=== PATIENT | female | born 1975 | race American Indian/Alaskan Native ===

== ENCOUNTER 2022-08-01 10:21 | Inpatient (IN) ==
[2022-08-01] MEDS ORDERED: IOPAMIDOL 100 ML BOTTLE IV ONE (10:22)
[2022-08-01] MEDS ORDERED: PANTOPRAZOLE 40 MG VIAL IV ONE (11:36)
[2022-08-01] MEDS ORDERED: fentaNYL 100 MCG/2 ML VIAL IV ONE ×3 (11:37→15:29)
--- NOTE | 2022-08-01 11:40 | Emergency Department Note ---
Abdominal Pain HPI General Chief Complaint: Abdominal Pain Stated Complaint: abdominal pain Time Seen by Provider: 08/01/22 10:37 Source: patient Mode of arrival: ambulatory Limitations: no limitations History of Present Illness HPI Narrative: Narrative: This 47-year-old female presents complaining of abdominal pain x2 days. She states she vomits after she smells food only sweats 1-2 times a day and denies any hematemesis she also complains of diarrhea 1 time a day and denies any hematochezia. She states she is positive for COVID and has developed this subxiphoid and left upper quadrant pain since then. She states it is a steady pain occasionally gets worse with compression hitting bumps in the car it in creases with eating anything. Her past medical history she is status post cholecystectomy appendectomy TARYN and right sided oophor ectomy. She has not had a bowel movement in a day and a half and it was diarrhea she peed this morning is not particularly concentrated and she has been trying to hydrate herself with TheraFlu and tea and water. In addition she had an episode of pancreatitis in the past. Her last episode of this was over a year ago. Related Data Home Medications Medication Instructions Recorded Confirmed ondansetron 8 mg disintegrating 8 mg PO Q8HP PRN Nausea 03/11/15 08/25/20 tablet (Zofran ODT) propranolol 60 mg tablet 120 mg PO DAILY 03/11/15 07/30/21 topiramate 200 mg capsule,extended 500 mg PO DAILY 03/20/15 07/30/21 release 24 hr (Trokendi XR) duloxetine 30 mg capsule,delayed 60 mg PO DAILY 05/20/15 08/25/20 release (Cymbalta) zolmitriptan 5 mg tablet (Zomig) 5 mg PO PRN PRN Headache 11/08/15 08/25/20 Vitamin B12 1,000 mg PO DAILY 03/28/18 08/25/20 acetaminophen 500 mg tablet 500 - 1,000 mg PO DAILY PRN Pain 08/25/20 08/25/20 (Tylenol Extra Strength) docusate sodium 100 mg capsule 100 mg PO DAILY 08/25/20 08/25/20 omeprazole 20 mg capsule,delayed 20 mg PO BID 08/25/20 08/25/20 release Previous Rx's Medication Instructions Recorded dicyclomine 20 mg tablet 20 mg PO QID #12 tabs 11/28/20 Allergies Allergy/AdvReac Type Severity Reaction Status Date / Time NSAIDS (Non-Steroidal AdvReac Intermediate Verified 01/19/22 16:51 Anti-Inflamma Review of Systems ROS ROS Narrative: Narrative: All systems ED: reviewed and negative except as stated. [facility] Narrative Patient History Narrative: Narrative: Medical/Surgical/Family History All Active Problems Migraine (Acute) Headache (Acute) Migraine (Acute) Migraine (Acute) Migraine headache (Acute) Tension headache (Acute) UTI (urinary tract infection) (Acute) Chronic abdominal pain (Acute) Migraine (Acute) Abdominal pain (Acute) Migraine (Acute) Migraine aura, persistent (Acute) Head ache (Acute) Migraine (Acute) Migraine NEC/intractable (Acute) URI (upper respiratory infection) (Acute) Abdominal pain (Acute) Elevated lipase (Acute) Pancreatitis (Acute) Nausea & vomiting (Acute) Abdominal pain (Acute) Acute dehydration (Acute) Chronic headaches (Acute) Chronic headache (Acute) Medical History Abdominal pain Chronic abdominal pain Head ache Headache Migraine Migraine Migraine Migraine Migraine Migraine Migraine aura, persistent Migraine headache Tension headache UTI (urinary tract infection) Social History Alcohol Intake Frequency: holiday/special occasion only Substance Use: does not use Exam Narrative Narrative: Narrative: General: No acute distress alert and oriented x3 answers questions cogently. Skin: Well perfused and hydrated without exanthem. Lungs: Clear to auscultation equal bilaterally.: CV: Regular rate and rhythm without murmurs clicks rubs or gallops. Abdomen decreased bowel sounds tender in the subxiphoid and left upper quadrant as well as left lower quadrant without rebound CVA or psoas tenderness. She has no rigidity distention or masses or hepatosplenomegaly. Rectal: Deferred General Limitations: no limitations Course Vital Signs Vital signs: Vital Signs Temperature 96.5 F L 08/01/22 10:23 Pulse Rate 55 L 08/01/22 10:23 Respiratory Rate 18 08/01/22 10:23 Blood Pressure 108/76 08/01/22 10:23 Pulse Oximetry (%) 99 08/01/22 10:23 Oxygen Delivery Method 08/01/22 10:23 Temperature 96.5 F L 08/01/22 10:23 Pulse Rate 54 L 08/01/22 12:43 Respiratory Rate 18 08/01/22 10:23 Blood Pressure 94/69 08/01/22 12:43 Pulse Oximetry (%) 99 08/01/22 12:43 Oxygen Delivery Method 08/01/22 10:23 MDM MDM Narrative Medical decision making narrative: Narrative:The lung bases are clear. No effusions. The visualized heart is grossly normal. Abdominal images show mild fatty change within the liver, but no focal hepatic lesion. The gallbladder is surgically absent. There is marked dilatation of the common hepatic and common bile duct. The common bile duct has increased from 15 mm to 17.5 mm since the 2012 exam. There is no mass or stone in the ampullary region. Findings are most compatible with progressive post cholecystectomy papillary stenosis. Pancreas is normal in size and attenuation without focal lesion. Both kidneys, adrenal glands, spleen and aorta including aortic branches are normal in size configuration and attenuation without focal lesion. There is no free air, free fluid or adenopathy. Pelvic images show urinary bladder is normal. Partial hysterectomy changes appreciated. The retained cervix is moderately enlarged spanning 3.3 x 6.2 cm, with inhomogeneous attenuation and scattered low-attenuation foci.. 3 cm cystic lesion on the left ovary has been stable in size since 2012. Few sigmoid diverticula appreciated, but no evidence of diverticulitis. The remainder of the large bowel, small bowel and stomach are normal. Appendix is surgically absent. Bone windows show no osseous abnormality. IMPRESSION: Marked dilatation of the common bile duct which shows slow increase since 2012. Findings compatible with progressive post cholecystomy papillary stenosis. Partial hysterectomy: The retained cervix is moderately enlarged and inhomogeneous with scattered low-attenuation foci. This represents a change from the previous exam. Please correlate with speculum exam and Pap smear with possible cervical biopsy to evaluate for malignancy. 3 cm cystic lesion left ovary stable since 2012. Discussed the case with Dr. Boateng he felt the papillotomy would help the patient. Patient agreed to the procedure and consult to the hospitalist was requested. Sepsis Sepsis Identified: No Lab Data Result diagrams: 08/01/22 12:05 08/01/22 12:05 Labs: Lab Results 08/01/22 Range/Units 12:09 POC Troponin I < 0.02 (0.00-0.08) Discharge Plan Patient/Caregiver Discharge Instructions Follow up with: Leena Salazar ARNP [Primary Care Provider] - Prescriptions: No Action propranolol 60 MG tablet 120 mg PO DAILY ondansetron [Zofran ODT] 8 MG tablet,disintegrating 8 mg PO Q8HP PRN (Reason: Nausea) Trokendi XR 200 MG capsule,extended release 24hr 500 mg PO DAILY duloxetine [Cymbalta] 30 MG capsule,delayed release(DR/EC) 60 mg PO DAILY zolmitriptan [Zomig] 5 MG tablet 5 mg PO PRN PRN (Reason: Headache) Vitamin B12 1,000 mg PO DAILY acetaminophen [Tylenol Extra Strength] 500 mg Tablet 500 - 1,000 mg PO DAILY PRN (Reason: Pain) docusate sodium 100 mg Capsule 100 mg PO DAILY omeprazole 20 mg Capsule,Delayed Release(Dr/Ec) 20 mg PO BID dicyclomine 20 mg tablet 20 mg PO QID Qty: 12 0RF
--- NOTE | 2022-08-01 11:59 | Cat Scan Report ---
CLINICAL INFORMATION: Abdominal pain COMPARISON: Abdomen and pelvic CT 08/13/2012 TECHNIQUE: Following enteric contrast, 80 cc of Isovue-370 were injected intravenously, and 60 seconds later, 0.625 mm helical slices were obtained from the mid heart through the subtrochanteric regions. Following reconstruction, 2.5 mm sagittal, coronal and axial reformatted images were processed and reviewed at bone, lung and soft tissue windows. Five minutes later, 0.625 mm helical slices were obtained from the mid heart through the kidneys and viewed at soft tissue windows.The exam was performed using radiation dose optimization techniques including, but not limited to, automated exposure control, adjustment of the mA and/or kV according to patient size and use of iterative reconstruction technique. FINDINGS: The lung bases are clear. No effusions. The visualized heart is grossly normal. Abdominal images show mild fatty change within the liver, but no focal hepatic lesion. The gallbladder is surgically absent. There is marked dilatation of the common hepatic and common bile duct. The common bile duct has increased from 15 mm to 17.5 mm since the 2011 exam. There is no mass or stone in the ampullary region. Findings are most compatible with progressive post cholecystectomy papillary stenosis. Pancreas is normal in size and attenuation without focal lesion. Both kidneys, adrenal glands, spleen and aorta including aortic branches are normal in size configuration and attenuation without focal lesion. There is no free air, free fluid or adenopathy. Pelvic images show urinary bladder is normal. Partial hysterectomy changes appreciated. The retained cervix is moderately enlarged spanning 3.3 x 6.2 cm, with inhomogeneous attenuation and scattered low-attenuation foci.. 3 cm cystic lesion on the left ovary has been stable in size since 2012. Few sigmoid diverticula appreciated, but no evidence of diverticulitis. The remainder of the large bowel, small bowel and stomach are normal. Appendix is surgically absent. Bone windows show no osseous abnormality. IMPRESSION: Marked dilatation of the common bile duct which shows slow increase since 2012. Findings compatible with progressive post cholecystomy papillary stenosis. Partial hysterectomy: The retained cervix is moderately enlarged and inhomogeneous with scattered low-attenuation foci. This represents a change from the previous exam. Please correlate with speculum exam and Pap smear with possible cervical biopsy to evaluate for malignancy. 3 cm cystic lesion left ovary stable since 2012. Interpreted and Authenticated by: Haris Radford 08/01/22
[2022-08-01 13:08] LABS: Basophils # (Auto) 0.06 K/mcL (0.00-0.30); Basophils % (Auto) 0.9 % (0.0-2.0); Eosinophils # (Auto) 0.12 K/mcL (0.00-0.70); Eosinophils % (Auto) 1.7 % (0.0-7.0); Hemoglobin 13.5 g/dL (11.2-15.7); Lymphocytes # (Auto) 1.85 K/mcL (1.50-4.80); Lymphocytes % (Auto) 26.7 % (15.5-49.0); Mean Cell Volume 88.6 fL (80.0-100.0); Mean Corpuscular HGB Conc 32.9 g/dL (31.0-36.0); Monocytes # (Auto) 0.38 K/mcL (0.10-0.90); Monocytes % (Auto) 5.5 % (1.0-12.0); Neutrophils % (Auto) 64.8 % (38.0-78.0); Platelet Count 238 K/mcL (140-440); RBC 4.63 M/mcL (3.59-5.38); Red Cell Distribution Width 13.7 % (11.5-14.5); WBC 6.9 K/mcL (4.5-11.0)
[2022-08-01 13:28] LABS: ALT/SGPT 16 U/L (<40); AST/SGOT 15 U/L (<32); Albumin 4.1 gm/dL (3.2-5.2); Albumin/Globulin Ratio 1.4 (1.0-2.3); Alkaline Phosphatase 65 U/L (39-117); Amylase 26 U/L (28-100); Bilirubin,Total 0.4 mg/dL (0.1-1.0); Blood Urea Nitrogen 11 mg/dL (6-20); Calcium 8.3 mg/dL (8.6-10.4); Carbon Dioxide 17 mmol/L (22-30); Chloride 104 mmol/L (96-108); Glomerular Filtration Rate 88; Glucose 86 mg/dL (70-105)
[2022-08-01] MEDS ORDERED: 0.9 % SODIUM CHLORIDE 1,000 ML IV ONE (13:45)
[2022-08-01] MEDS ORDERED: INDOMETHACIN 25 MG CAPSULE PO ONE (14:30)
[2022-08-01] MEDS ORDERED: LACTATED RINGERS 1,000 ML IV SCH (14:30)
--- NOTE | 2022-08-01 14:39 | Internal Medicine Consult Note ---
HPI Date of Consult Consult Date: 08/01/22 Primary Care Provider: KAMILAH Wiley Consult Narrative Chief complaint: abdominal pain Reason for consult: dilated common bile duct History of present illness: Odette is a 47 year old female with migraines who is s/p lap cholecystectomy in 2001. 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 She has required several ERCPs about 15 years ago, presumably for papillary stenosis. She was last seen in our clinic in 2019 where her symptoms were suspected to be functional. She was started on nortriptyline and then seen at [facility] for [facility] in 2020 and tells me that was "normal". I do not have that report to review. On 07/21, she developed COVID and had postprandial upper abdominal pain, nausea, vomiting and diarrhea. For the last several days, her pain has been constant even despite fasting. She continues to have chronic pain and persistent migraine despite Aimovig, topiramate 400mg BID and nortriptyline and Botox. She uses Yoga and meditation. She discontinued opioid therapy. CT shows she is s/p cholecystectomy with a CBD measuring 17.5mm and normal AST, Alt, ALP, lipase and amylase. cc:: CC: Review of Systems All systems: reviewed and no additional remarkable complaints except as stated PFSH PFSH All Active Problems (Updated 08/01/22 @ 14:37 by KAMILAH Garrido) Stenosis of papilla of Vater (Acute) Migraine (Acute) Headache (Acute) Migraine (Acute) Migraine (Acute) Migraine headache (Acute) Tension headache (Acute) UTI (urinary tract infection) (Acute) Chronic abdominal pain (Acute) Migraine (Acute) Abdominal pain (Acute) Migraine (Acute) Migraine aura, persistent (Acute) Head ache (Acute) Migraine (Acute) Migraine NEC/intractable (Acute) URI (upper respiratory infection) (Acute) Abdominal pain (Acute) Elevated lipase (Acute) Pancreatitis (Acute) Nausea & vomiting (Acute) Abdominal pain (Acute) Acute dehydration (Acute) Chronic headaches (Acute) Chronic headache (Acute) Abdominal pain (Acute) Medical History (Updated 08/01/22 @ 14:37 by KAMILAH Garrido) Abdominal pain Chronic abdominal pain Head ache Headache Migraine Migraine Migraine Migraine Migraine Migraine Migraine aura, persistent Migraine headache Stenosis of papilla of Vater Tension headache UTI (urinary tract infection) Social History alcohol intake frequency: holiday/special occasion only substance use type: does not use MEDS/ALLERGIES Home Medications and Allergies Home Medications Medication Instructions Recorded Confirmed Type ondansetron 8 mg disintegrating 8 mg PO Q8HP PRN Nausea 03/11/15 08/25/20 History tablet (Zofran ODT) propranolol 60 mg tablet 120 mg PO DAILY 03/11/15 07/30/21 History topiramate 200 mg capsule,extended 500 mg PO DAILY 03/20/15 07/30/21 History release 24 hr (Trokendi XR) duloxetine 30 mg capsule,delayed 60 mg PO DAILY 05/20/15 08/25/20 History release (Cymbalta) zolmitriptan 5 mg tablet (Zomig) 5 mg PO PRN PRN Headache 11/08/15 08/25/20 History Vitamin B12 1,000 mg PO DAILY 03/28/18 08/25/20 History acetaminophen 500 mg tablet 500 - 1,000 mg PO DAILY PRN Pain 08/25/20 08/25/20 History (Tylenol Extra Strength) docusate sodium 100 mg capsule 100 mg PO DAILY 08/25/20 08/25/20 History omeprazole 20 mg capsule,delayed 20 mg PO BID 08/25/20 08/25/20 History release dicyclomine 20 mg tablet 20 mg PO QID #12 tabs 11/28/20 Rx Allergies Allergy/AdvReac Type Severity Reaction Status Date / Time NSAIDS (Non-Steroidal AdvReac Intermediate Verified 01/19/22 16:51 Anti-Inflamma EXAM Constitutional Vitals: Temp Pulse Resp BP Pulse Ox O2 Del Method 96.5 F L 57 L 18 109/74 100 08/01/22 10:23 08/01/22 13:44 08/01/22 10:23 08/01/22 13:44 08/01/22 13:44 08/01/22 14:02 General appearance: average body habitus, cooperative and no acute distress Head Head exam: Present atraumatic, normal inspection and normocephalic Eye Eye exam: Present normal appearance ENT ENT exam: Present normal exam Neck Neck exam: Present normal inspection Respiratory Respiratory exam: Present normal respiratory exam Cardiovascular Cardiovascular exam: Present normal rate and rhythm; Absent gallop, rubs or systolic murmur GI/Abdominal GI/Abdominal exam: Present normal bowel sounds, soft and tenderness (upper abdominal ); Absent organomegaly Neurological Exam Neurological exam: Present alert and oriented X3 Psychiatric Psychiatric exam: Present normal affect and normal mood Skin Skin exam: Present normal color and warm DATA Data Completed and Pending Labs: Labs from last 24 hours 08/01/22 08/01/22 08/01/22 12:09 12:05 12:05 WBC 6.9 RBC 4.63 Hgb 13.5 Hct 41.0 MCV 88.6 MCH 29.2 MCHC 32.9 RDW 13.7 Plt Count 238 MPV 12.0 Immature Gran % (Auto) 0.4 Neut % (Auto) 64.8 Lymph % (Auto) 26.7 [place] % (Auto) 5.5 Eos % (Auto) 1.7 Baso % (Auto) 0.9 Lymph # (Auto) 1.85 [place] # (Auto) 0.38 Eos # (Auto) 0.12 Baso # (Auto) 0.06 Immature Gran # 0.03 Absolute Neutrophils 4.50 VBG Lactic Acid 0.7 Sodium 133 Potassium 4.0 Chloride 104 Carbon Dioxide 17 L Anion Gap 12.0 BUN 11 Creatinine 0.8 GFR Calculation 88 Glucose 86 Calcium 8.3 L Total Bilirubin 0.4 AST 15 ALT 16 Alkaline Phosphatase 65 Total Protein 7.1 Albumin 4.1 Globulin 3.0 Albumin/Globulin Ratio 1.4 Amylase 26 L Lipase 19 POC Troponin I < 0.02 A/P Assessment and plan (1) Stenosis of papilla of Vater: Assessment and plan: I discussed her case with Dr. Casillas. We will proceed with ERCP. We discussed the procedure in detail using an illustration. We reviewed the risks of ascending cholangitis, pancreatitis, bleeding, perforation, among others. If a biliary stent is placed, she will require a repeat procedure to remove it. She will follow up with me in clinic as an out patient next week. [phone] [place] [address]. We will give her ketamine as part of her sedation regimen as this can be helpful for chronic pain in migraineurs; she understands this is not FDA approved. Status: Acute Time Spent With Patient Time: Total time spent is greater than 50% in coordination of care (as documented) at patient's floor/unit and/or counseling patient:
[2022-08-01] MEDS: LACTATED RINGERS 1,000 ML IV SCH ×2 (14:55→23:34)
[2022-08-01] MEDS ORDERED: NITROGLYCERIN 0.6 MG/HR PATCH TD ONE (15:30)
[2022-08-01] MEDS ORDERED: KETAMINE 100 MG/ML ML ONE (16:20)
[2022-08-01] MEDS: MIDAZOLAM 2 MG/2 ML VIAL IV ONE ×2 (16:25→17:43)
[2022-08-01] MEDS: PROPOFOL 200 MG/20 ML VIAL IV ONE ×2 (16:25→17:43)
[2022-08-01] MEDS ORDERED: GENTAMICIN SULFATE 80 MG/2 ML VIAL IJ ONE (16:30)
[2022-08-01] MEDS ORDERED: IOPAMIDOL 50 ML BOTTLE IJ ONE (18:17)
[2022-08-01] MEDS ORDERED: HYDROmorphone 0.5 MG/0.5 ML SYRINGE IV ONE (18:39)
[2022-08-01] MEDS ORDERED: HYDROmorphone 0.5 MG/0.5 ML SYRINGE ONE ×2 (18:42→21:27)
[2022-08-01] MEDS ORDERED: ACETAMINOPHEN 325 MG TABLET PO ONE ×2 (19:50→19:52)
[2022-08-01] MEDS: HYDROmorphone 0.5 MG/0.5 ML SYRINGE IV PRN ×2 (21:34→23:30)
[2022-08-02] MEDS: HYDROmorphone 0.5 MG/0.5 ML SYRINGE IV PRN ×10 (02:54→23:47)
[2022-08-02] MEDS: LACTATED RINGERS 1,000 ML IV SCH ×3 (05:02→21:46)
--- NOTE | 2022-08-02 05:20 | Cat Scan Report ---
CLINICAL INFORMATION: Status post ERCP. increasing abdominal pain COMPARISON: Abdomen and pelvic CT 08/13/2012 and 08/01/2022. TECHNIQUE: 0.625 mm helical slices were obtained from the mid heart through the subtrochanteric regions. Following reconstruction, 2.5 mm sagittal, coronal and axial reformatted images were processed and reviewed at bone and soft tissue windows.The exam was performed using radiation dose optimization techniques including, but not limited to, automated exposure control, adjustment of the mA and/or kV according to patient size and use of iterative reconstruction technique. FINDINGS: The lung bases are clear. No effusions. The visualized heart is grossly normal. Abdominal images show the gallbladder is surgically absent. A biliary stent is now properly positioned with the proximal end in the common hepatic duct and distal end in the descending duodenum. The duct has been decompressed considerably since the preprocedure exam. The calvarium is now approximately 10 mm in the common hepatic region. Modest air in the common hepatic and nondependent left hepatic ducts as expected. No stones identified. Both noncontrasted kidneys, adrenal glands, spleen, pancreas and aorta are normal in size, configuration and attenuation without focal lesion. There is no free air, free fluid or adenopathy. Pelvic images show normal noncontrasted urinary bladder. Partial hysterectomy changes noted moderate enlargement of the retained cervix as described CT report earlier today please refer to that report. The retained left ovary is mildly enlarged 5.1 x 2.4 cm this is been stable since 2011. Right ovary not identified and may be surgically absent. The stomach, small bowel, and large bowel are grossly normal. Appendix is surgically absent. Bone windows show no osseous abnormality. IMPRESSION: 1. No complication following ERCP. Biliary stent is properly positioned and the duct is decompressed 2. Hysterectomy changes with bulbous enlargement of the cervix. Please see CT report from earlier in the day. Please correlate with speculum exam and Pap smear to evaluate for malignancy or inflammation. Interpreted and Authenticated by: Harsi Radford 08/02/22
--- NOTE | 2022-08-02 14:41 | Internal Med History&Physical ---
HPI History of Present Illness Patient information: Note initiated : 08/02/22 at 2:32 pm Service Date, if different from initiated Date: [] Patient: Odette López a 47 y/o F admitted on for abdominal pain. Chief Complaint: [] History of present illness: Ms. López is a 47 year old F Complaining of abdominal pain. Patient developed COVID last week and has had abdominal pain in the upper abdomen since then. She presented to the ED yesterday with increasing pain for the past prior days. She has had nausea and vomiting. She has had a cholecystectomy. CT abdomen pelvis showed marked Neel dilated common bile duct that has been increasing since 2012. Findings were compatible with progressive post cholecystostomy papillary stenosis. Also noted was partial as directed me with moderately enlarged inhomogenous cervix recommend follow-up to rule out malignancy. Have patient follow-up outpatient. Dr. Boateng was contacted and the patient underwent ERCP which included a papillotomy and stent placement. Today she is developed increasing epigastric pain which is described as sharp radiating straight to the back. Her lipase went up to 700. Imaging shows stent in the proper position. Review of Systems: Pertinent positive as above denies fever/chills/vomiting/chest pain/cough/dyspnea/diarrhea. Remaining 10 point review of system reviewed negative PFSH PFSH All Active Problems (Updated 08/01/22 @ 14:37 by KAMILAH Garrido) Stenosis of papilla of Vater (Acute) Migraine (Acute) Headache (Acute) Migraine (Acute) Migraine (Acute) Migraine headache (Acute) Tension headache (Acute) UTI (urinary tract infection) (Acute) Chronic abdominal pain (Acute) Migraine (Acute) Abdominal pain (Acute) Migraine (Acute) Migraine aura, persistent (Acute) Head ache (Acute) Migraine (Acute) Migraine NEC/intractable (Acute) URI (upper respiratory infection) (Acute) Abdominal pain (Acute) Elevated lipase (Acute) Pancreatitis (Acute) Nausea & vomiting (Acute) Abdominal pain (Acute) Acute dehydration (Acute) Chronic headaches (Acute) Chronic headache (Acute) Abdominal pain (Acute) Medical History (Updated 08/01/22 @ 14:37 by KAMILAH Garrido) Abdominal pain Chronic abdominal pain Head ache Headache Migraine Migraine Migraine Migraine Migraine Migraine Migraine aura, persistent Migraine headache Stenosis of papilla of Vater Tension headache UTI (urinary tract infection) Social History alcohol intake frequency: holiday/special occasion only substance use type: does not use MEDS/ALLERGIES Home Medications and Allergies Home Medications Medication Instructions Recorded Confirmed Type ondansetron 8 mg disintegrating 8 mg PO Q8HP PRN Nausea 03/11/15 08/25/20 History tablet (Zofran ODT) propranolol 60 mg tablet 120 mg PO DAILY 03/11/15 07/30/21 History topiramate 200 mg capsule,extended 500 mg PO DAILY 03/20/15 07/30/21 History release 24 hr (Trokendi XR) duloxetine 30 mg capsule,delayed 60 mg PO DAILY 05/20/15 08/25/20 History release (Cymbalta) zolmitriptan 5 mg tablet (Zomig) 5 mg PO PRN PRN Headache 11/08/15 08/25/20 History Vitamin B12 1,000 mg PO DAILY 03/28/18 08/25/20 History acetaminophen 500 mg tablet 500 - 1,000 mg PO DAILY PRN Pain 08/25/20 08/25/20 History (Tylenol Extra Strength) docusate sodium 100 mg capsule 100 mg PO DAILY 08/25/20 08/25/20 History omeprazole 20 mg capsule,delayed 20 mg PO BID 08/25/20 08/25/20 History release dicyclomine 20 mg tablet 20 mg PO QID #12 tabs 11/28/20 Rx Allergies Allergy/AdvReac Type Severity Reaction Status Date / Time NSAIDS (Non-Steroidal AdvReac Intermediate Verified 01/19/22 16:51 Anti-Inflamma EXAM Constitutional Vitals: Temp Pulse Resp BP Pulse Ox O2 Del Method O2 Flow Rate 97.9 F 65 24 H 119/79 100 96 08/02/22 12:00 08/02/22 05:03 08/02/22 12:00 08/02/22 12:08/02/22 12:08/02/22 12:08/02/22 11:53 Exam: General: Alert, Awake, No acute Distress Eyes/N/T: EOMI, PERRL, Head/Neck: neck supple, normocephalic atraumatic CV: RRR, No murmurs, normal s1/s2 Pulm: Clear b/l, no wheezing/rhonchi/rales Abd: soft, Tender epigastric region, +BS x4 Ext: no clubbing/cyanosis/edema Neuro: Alert, no focal deficits, moves all extremities, CN 2-12 grossly intact, sensations intact b/l upper/lower Skin: warm/dry DATA Data Completed and Pending Labs: Labs from last 24 hours 08/02/22 08/02/22 08/02/22 06:19 06:19 06:19 WBC Pending RBC Pending Hgb Pending Hct Pending MCV Pending MCH Pending MCHC Pending RDW Pending Plt Count Pending MPV Pending Immature Gran % (Auto) Pending Neut % (Auto) Pending Immature Gran # Pending Sodium Pending Potassium Pending Chloride Pending Carbon Dioxide Pending Anion Gap Pending BUN Pending Creatinine Pending GFR Calculation Pending Glucose Pending Uric Acid Pending Calcium Pending Phosphorus Pending Magnesium Pending Total Bilirubin Pending Direct Bilirubin Pending GGT Pending AST Pending ALT Pending Alkaline Phosphatase Pending Lactate Dehydrogenase Pending Total Protein Pending Albumin Pending Globulin Pending Albumin/Globulin Ratio Pending Triglycerides Pending Lipase 777 H A/P Narrative A/P Narrative: 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
[2022-08-02 14:44] LABS: Basophils # (Auto) 0.03 K/mcL (0.00-0.30); Basophils % (Auto) 0.4 % (0.0-2.0); Eosinophils # (Auto) 0.13 K/mcL (0.00-0.70); Eosinophils % (Auto) 1.6 % (0.0-7.0); Hematocrit 38.9 % (34.1-44.9); Hemoglobin 12.3 g/dL (11.2-15.7); Lymphocytes # (Auto) 2.18 K/mcL (1.50-4.80); Lymphocytes % (Auto) 27.1 % (15.5-49.0); Mean Cell Volume 91.1 fL (80.0-100.0); Mean Corpuscular HGB Conc 31.6 g/dL (31.0-36.0); Monocytes # (Auto) 0.56 K/mcL (0.10-0.90); Neutrophils % (Auto) 63.3 % (38.0-78.0); Platelet Count 221 K/mcL (140-440); RBC 4.27 M/mcL (3.59-5.38); Red Cell Distribution Width 13.7 % (11.5-14.5)
[2022-08-02 14:52] LABS: ALT/SGPT 28 U/L (<40); AST/SGOT 30 U/L (<32); Albumin 3.7 gm/dL (3.2-5.2); Albumin/Globulin Ratio 1.2 (1.0-2.3); Alkaline Phosphatase 65 U/L (39-117); Bilirubin,Direct < 0.2 mg/dL (0-0.3); Bilirubin,Total 0.3 mg/dL (0.1-1.0); Blood Urea Nitrogen 14 mg/dL (6-20); Calcium 8.4 mg/dL (8.6-10.4); Carbon Dioxide 17 mmol/L (22-30); Chloride 102 mmol/L (96-108); Globulin 3.1 gm/dL (2.2-3.7); Glomerular Filtration Rate 104; Glucose 90 mg/dL (70-105); Lactate Dehydrogenase 130 U/L (135-225); Phosphorous 3.5 mg/dL (2.5-4.5); Triglycerides 149 mg/dL (<150); Uric Acid 5.8 mg/dL (2.5-8.0)
[2022-08-02] MEDS ORDERED: POLYETHYLENE GLYCOL 3350 17 GM PACKET PO PRN (15:33)
[2022-08-02] MEDS ORDERED: MAGNESIUM SULFATE 2 GM/50 ML BAG IV PRN (15:33)
[2022-08-02] MEDS ORDERED: LACTATED RINGERS 1,000 ML IV ONE (15:33)
[2022-08-02] MEDS ORDERED: PROMETHAZINE 25 MG/ML VIAL IV PRN (15:33)
[2022-08-02] MEDS ORDERED: SENNOSIDES 1 TABLET PO PRN (15:33)
[2022-08-02] MEDS ORDERED: POTASSIUM CHLORIDE 20 MEQ TABLET PO PRN ×2 (15:33)
[2022-08-02] MEDS ORDERED: POTASSIUM CHLORIDE 40 MEQ in DEXTROSE 5% IN WATER 500 ML IV PRN (15:33)
[2022-08-02] MEDS ORDERED: ONDANSETRON 4 MG/2 ML VIAL IV PRN (15:33)
[2022-08-02] MEDS: ACETAMINOPHEN 325 MG TABLET PO PRN (21:47)
[2022-08-02] MEDS: 0.9 % SODIUM CHLORIDE 10 ML SYRINGE IV SCH (21:48)
[2022-08-02] MEDS ORDERED: HYDROmorphone 0.5 MG/0.5 ML SYRINGE ONE (23:40)
[2022-08-03] MEDS ORDERED: HYDROmorphone 1 MG/ML SYRINGE ONE (02:32)
[2022-08-03] MEDS: HYDROmorphone 0.5 MG/0.5 ML SYRINGE IV PRN ×10 (02:36→23:39)
[2022-08-03] MEDS ORDERED: HYDROmorphone 0.5 MG/0.5 ML SYRINGE ONE ×2 (04:31→06:37)
[2022-08-03] MEDS: 0.9 % SODIUM CHLORIDE 10 ML SYRINGE IV SCH ×3 (05:46→20:09)
[2022-08-03] MEDS: LACTATED RINGERS 1,000 ML IV SCH ×4 (05:46→19:43)
[2022-08-03 06:49] LABS: Basophils # (Auto) 0.04 K/mcL (0.00-0.30); Basophils % (Auto) 0.6 % (0.0-2.0); Eosinophils # (Auto) 0.15 K/mcL (0.00-0.70); Eosinophils % (Auto) 2.1 % (0.0-7.0); Hematocrit 37.8 % (34.1-44.9); Hemoglobin 12.3 g/dL (11.2-15.7); Lymphocytes # (Auto) 2.08 K/mcL (1.50-4.80); Lymphocytes % (Auto) 29.1 % (15.5-49.0); Mean Cell Volume 90.4 fL (80.0-100.0); Mean Corpuscular HGB Conc 32.5 g/dL (31.0-36.0); Mean Platelet Volume 12.7 fL (8.8-12.5); Monocytes # (Auto) 0.47 K/mcL (0.10-0.90); Monocytes % (Auto) 6.6 % (1.0-12.0); Neutrophils % (Auto) 61.3 % (38.0-78.0); Platelet Count 176 K/mcL (140-440); RBC 4.18 M/mcL (3.59-5.38); Red Cell Distribution Width 13.6 % (11.5-14.5); WBC 7.2 K/mcL (4.5-11.0)
[2022-08-03] MEDS: PANTOPRAZOLE 40 MG VIAL IV SCH (06:53)
[2022-08-03 07:08] LABS: ALT/SGPT 61 U/L (<40); AST/SGOT 95 U/L (<32); Albumin 3.7 gm/dL (3.2-5.2); Albumin/Globulin Ratio 1.4 (1.0-2.3); Alkaline Phosphatase 75 U/L (39-117); Bilirubin,Direct < 0.2 mg/dL (0-0.3); Bilirubin,Total 0.2 mg/dL (0.1-1.0); Blood Urea Nitrogen 6 mg/dL (6-20); Calcium 7.9 mg/dL (8.6-10.4); Carbon Dioxide 19 mmol/L (22-30); Chloride 105 mmol/L (96-108); Globulin 2.7 gm/dL (2.2-3.7); Glomerular Filtration Rate 104; Glucose 81 mg/dL (70-105); Lactate Dehydrogenase 188 U/L (135-225); Phosphorous 2.8 mg/dL (2.5-4.5); Triglycerides 167 mg/dL (<150); Uric Acid 4.6 mg/dL (2.5-8.0)
--- NOTE | 2022-08-03 07:45 | Internal Med Progress Note ---
SUBJECTIVE Subjective Patient information: Note initiated : 08/03/22 at 7:42 am Service Date, if different from initiated Date: [] Patient: Odette López a 47 y/o F admitted on 08/02/22 for abdominal pain. Chief Complaint: [] Interval history: History of present illness: Ms. López is a 47 year old F Complaining of abdominal pain. Patient developed COVID last week and has had abdominal pain in the upper abdomen since then. She presented to the ED yesterday with increasing pain for the past prior days. She has had nausea and vomiting. She has had a cholecystectomy. CT abdomen pelvis showed marked Neel dilated common bile duct that has been increasing since 2011. Findings were compatible with progressive post cholecystostomy papillary stenosis. Also noted was partial as directed me with moderately enlarged inhomogenous cervix recommend follow-up to rule out malignancy. Have patient follow-up outpatient. Dr. Boateng was contacted and the patient underwent ERCP which included a papillotomy and stent placement. Today she is developed increasing epigastric pain which is described as sharp radiating straight to the back. Her lipase went up to 700. Imaging shows stent in the proper position. 08/03 Patient states pain started acting up at 5 this morning. She has been nauseous but no vomiting. Lipase decreasing. Mild transaminitis. Constitutional Vitals: Vital Signs Temp Pulse Resp BP Pulse Ox O2 Del Method O2 Flow Rate 98.5 F 66 18 101/71 96 96 08/03/22 03:03 08/03/22 03:03 08/03/22 03:03 08/03/22 03:03 08/03/22 03:03 08/03/22 03:03 08/02/22 11:53 Period Temp Pulse Resp BP Sys/[place] Pulse Ox O2 Del Method O2 Flow Rate Last 24 Hr 97.7 F-99.2 F 63-70 16-24 101-119/66-79 96-100 Room Air-Room Air 96 Intake and Output 08/02/22 08/03/22 08/03/22 19:59 03:59 11:59 Intake Total 2759 2047 Balance 2759 2047 Weight 77.139 kg Intake & Output: Intake & Output 08/02/22 08/03/22 08/03/22 19:59 03:59 11:59 Intake Total 2759 2047 Balance 2759 2047 Weight 77.139 kg Intake: IV 1000 1000 Lactated Ringers 1,000 ml @ 125 1000 1000 mls/hr IV .Q8H [facility] Rx#: [id number] Oral [id number] Other: Meal Dinner Percent of Meal Consumed 100% Feeding Ability Independent Urine Color Dark Yellow # Voids 3 2 Exam: General: Alert, Awake, No acute Distress Eyes/N/T: EOMI, Head/Neck: neck supple, CV: RRR, No murmurs, Pulm: Clear b/l, no wheezing/rhonchi/rales Abd: soft, Tender epigastric region, +BS x4 Ext: no clubbing/cyanosis/edema Neuro: Alert, no focal deficits, moves all extremities, Skin: warm/dry OBJ DATA Labs CBC & Chem 7: 08/03/22 05:30 08/03/22 05:29 Labs: Abnormal Lab Results 08/03/22 08/03/22 08/03/22 05:30 05:29 05:29 MPV 12.7 H Immature Gran % (Auto) Sodium Carbon Dioxide 19 L Calcium 7.9 L GGT 86 H AST 95 H ALT 61 H Lactate Dehydrogenase Triglycerides 167 H Amylase Lipase 357 H 08/02/22 08/02/22 08/02/22 06:19 06:19 06:19 MPV Immature Gran % (Auto) 0.6 H Sodium 132 L Carbon Dioxide 17 L Calcium 8.4 L GGT 58 H AST ALT Lactate Dehydrogenase 130 L Triglycerides Amylase Lipase 777 H 08/01/22 12:05 MPV Immature Gran % (Auto) Sodium Carbon Dioxide 17 L Calcium 8.3 L GGT AST ALT Lactate Dehydrogenase Triglycerides Amylase 26 L Lipase Meds: Medications Acetaminophen (Acetaminophen 325 Mg Tablet) 650 mg PO Q6HP PRN; Protocol PRN Reason: Per Pain Protocol/Fever > 101 Last Admin: 08/02/22 21:47 Dose: 650 mg Enoxaparin Sodium (Enoxaparin 40 Mg/0.4 Ml Syringe) 40 mg SQ DAILY [place] Hydromorphone HCl (Hydromorphone 0.5 Mg/0.5 Ml Syringe) 0.25 - 0.75 mg IV Q2HP PRN; Protocol PRN Reason: Per Pain Protocol Last Admin: 08/03/22 04:32 Dose: 0.5 mg Lactated Ringer's (Lactated Ringers) 1,000 mls @ 125 mls/hr IV .Q8H [facility] Last Admin: 08/03/22 05:46 Dose: Not Given Potassium Chloride 40 meq/ (Dextrose) 520 mls @ 130 mls/hr IV UD PRN PRN Reason: Potassium < 3 Magnesium Sulfate (Magnesium Sulfate) 2 gm in 50 mls @ 50 mls/hr IV UD PRN PRN Reason: Magnesium </= 1.6 Ondansetron HCl (Ondansetron 4 Mg/2 Ml Vial) 4 mg IV Q4HP PRN PRN Reason: Nausea And Vomiting Pantoprazole Sodium (Pantoprazole 40 Mg Vial) 40 mg IV QAMAC [facility] Last Admin: 08/03/22 06:53 Dose: 40 mg Polyethylene Glycol (Polyethylene Glycol 3350 17 Gm Packet) 17 gm PO DAILYP PRN PRN Reason: Constipation Potassium Chloride (Potassium Chloride 20 Meq Tablet) 40 meq PO UD PRN PRN Reason: Potssium is 3-3.5 Potassium Chloride (Potassium Chloride 20 Meq Tablet) 40 meq PO UD PRN PRN Reason: Potassium < 3 Promethazine HCl (Promethazine 25 Mg/Ml Vial) 12.5 mg IV Q6HP PRN PRN Reason: Nausea And Vomiting Senna (Sennosides 1 Tablet) 2 tab PO DAILYP PRN PRN Reason: Constipation Sodium Chloride (0.9 % Sodium Chloride 10 Ml Syringe) 10 ml IV Q8 [facility] Last Admin: 08/03/22 05:46 Dose: Not Given A/P Narrative A/P Narrative: 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
[2022-08-03] MEDS: ENOXAPARIN 40 MG/0.4 ML SYRINGE SQ SCH (08:54)
[2022-08-03] MEDS: ACETAMINOPHEN 325 MG TABLET PO PRN (10:40)
[2022-08-04] MEDS: HYDROmorphone 0.5 MG/0.5 ML SYRINGE IV PRN ×5 (04:46→14:27)
[2022-08-04] MEDS: LACTATED RINGERS 1,000 ML IV SCH (05:55)
[2022-08-04] MEDS: 0.9 % SODIUM CHLORIDE 10 ML SYRINGE IV SCH (05:59)
[2022-08-04 06:58] LABS: ALT/SGPT 44 U/L (<40); AST/SGOT 32 U/L (<32); Albumin 3.3 gm/dL (3.2-5.2); Albumin/Globulin Ratio 1.4 (1.0-2.3); Alkaline Phosphatase 69 U/L (39-117); Bilirubin,Direct < 0.2 mg/dL (0-0.3); Bilirubin,Total 0.2 mg/dL (0.1-1.0); Blood Urea Nitrogen 2 mg/dL (6-20); Calcium 7.9 mg/dL (8.6-10.4); Carbon Dioxide 20 mmol/L (22-30); Chloride 109 mmol/L (96-108); Globulin 2.4 gm/dL (2.2-3.7); Glomerular Filtration Rate 109; Glucose 93 mg/dL (70-105); Lactate Dehydrogenase 125 U/L (135-225); Phosphorous 2.7 mg/dL (2.5-4.5); Triglycerides 156 mg/dL (<150); Uric Acid 3.9 mg/dL (2.5-8.0)
[2022-08-04] MEDS: PANTOPRAZOLE 40 MG VIAL IV SCH (07:16)
--- NOTE | 2022-08-04 07:23 | Internal Med Progress Note ---
SUBJECTIVE Subjective Patient information: Note initiated : 08/04/22 at 7:21 am Service Date, if different from initiated Date: [] Patient: Odette López a 47 y/o F admitted on 08/02/22 for abdominal pain. Chief Complaint: [] Interval history: History of present illness: Ms. López is a 47 year old F Complaining of abdominal pain. Patient developed COVID last week and has had abdominal pain in the upper abdomen since then. She presented to the ED yesterday with increasing pain for the past prior days. She has had nausea and vomiting. She has had a cholecystectomy. CT abdomen pelvis showed marked Neel dilated common bile duct that has been increasing since 2011. Findings were compatible with progressive post cholecystostomy papillary stenosis. Also noted was partial as directed me with moderately enlarged inhomogenous cervix recommend follow-up to rule out malignancy. Have patient follow-up outpatient. Dr. Boateng was contacted and the patient underwent ERCP which included a papillotomy and stent placement. Today she is developed increasing epigastric pain which is described as sharp radiating straight to the back. Her lipase went up to 700. Imaging shows stent in the proper position. 08/03 Patient states pain started acting up at 5 this morning. She has been nauseous but no vomiting. Lipase decreasing. Mild transaminitis. 08/04 Patient states less nausea today but still abdominal pain. Symptoms more or less constant. Epigastrium/RUQ pain is sharp. Patient says she had this pain for almost a year a year or so ago. She went to [facility] but nothing was found. Review of Systems: denies headache/fever/chills/vomiting/chest pain/cough/dyspnea/diarrhea. Otherwise see above. Constitutional Vitals: Vital Signs Temp Pulse Resp BP Pulse Ox O2 Del Method O2 Flow Rate 98.7 F 72 20 112/72 97 96 08/04/22 04:00 08/04/22 04:00 08/04/22 04:00 08/04/22 04:00 08/04/22 04:00 08/04/22 04:00 08/02/22 11:53 Period Temp Pulse Resp BP Sys/[place] Pulse Ox O2 Del Method O2 Flow Rate Last 24 Hr 98.4 F-99 F 70-72 16-20 97-112/66-72 95-99 Room Air-Room Air Intake and Output 1208/04/22 08/04/22 19:59 03:59 11:59 Intake Total 1740 1200 Output Total 800 800 Balance 1740 -800 400 Weight 78.018 kg Intake & Output: Intake & Output 08/03/22 08/04/22 08/04/22 19:59 03:59 11:59 Intake Total 1740 1200 Output Total 800 800 Balance 1740 -800 400 Weight 78.018 kg Intake: IV 1000 1000 Lactated Ringers 1,000 ml @ 100 1000 1000 mls/hr IV .Q10H [facility] Rx#: [id number] Oral 740 200 Output: Void Amount 800 800 Other: Urine Appearance Clear Clear Urine Color Pale Pale Urine Odor Normal Normal Exam: General: Alert, Awake, No acute Distress Eyes/N/T: EOMI, Head/Neck: neck supple, CV: RRR, No murmurs, Pulm: Clear b/l, no wheezing/rhonchi/rales Abd: soft, Tender epigastric/ruq region, +BS x4 Ext: no clubbing/cyanosis/edema Neuro: Alert, no focal deficits, moves all extremities, Skin: warm/dry OBJ DATA Labs CBC & Chem 7: 08/03/22 05:30 08/04/22 05:37 Labs: Abnormal Lab Results 08/04/22 08/03/22 08/03/22 05:37 05:30 05:29 MPV 12.7 H Immature Gran % (Auto) Sodium Chloride 109 H Carbon Dioxide 20 L 19 L BUN 2 L Calcium 7.9 L 7.9 L GGT 77 H 86 H AST 32 H 95 H ALT 44 H 61 H Lactate Dehydrogenase 125 L Total Protein 5.7 L Triglycerides 156 H 167 H Amylase Lipase 129 H 08/03/22 08/02/22 08/02/22 05:29 06:19 06:19 MPV Immature Gran % (Auto) 0.6 H Sodium 132 L Chloride Carbon Dioxide 17 L BUN Calcium 8.4 L GGT 58 H AST ALT Lactate Dehydrogenase 130 L Total Protein Triglycerides Amylase Lipase 357 H 08/02/22 08/01/22 06:19 12:05 MPV Immature Gran % (Auto) Sodium Chloride Carbon Dioxide 17 L BUN Calcium 8.3 L GGT AST ALT Lactate Dehydrogenase Total Protein Triglycerides Amylase 26 L Lipase 777 H Meds: Medications Acetaminophen (Acetaminophen 325 Mg Tablet) 650 mg PO Q6HP PRN; Protocol PRN Reason: Per Pain Protocol/Fever > 101 Last Admin: 08/03/22 10:40 Dose: 650 mg Enoxaparin Sodium (Enoxaparin 40 Mg/0.4 Ml Syringe) 40 mg SQ DAILY [facility] Last Admin: 08/03/22 08:54 Dose: 40 mg Hydromorphone HCl (Hydromorphone 0.5 Mg/0.5 Ml Syringe) 0.5 - 1 mg IV Q2HP PRN; Protocol PRN Reason: Per Pain Protocol Last Admin: 08/04/22 07:17 Dose: 0.5 mg Potassium Chloride 40 meq/ (Dextrose) 520 mls @ 130 mls/hr IV UD PRN PRN Reason: Potassium < 3 Magnesium Sulfate (Magnesium Sulfate) 2 gm in 50 mls @ 50 mls/hr IV UD PRN PRN Reason: Magnesium </= 1.6 Lactated Ringer's (Lactated Ringers) 1,000 mls @ 100 mls/hr IV .Q10H [facility] Last Admin: 08/04/22 05:55 Dose: 100 mls/hr Ondansetron HCl (Ondansetron 4 Mg/2 Ml Vial) 4 mg IV Q4HP PRN PRN Reason: Nausea And Vomiting Pantoprazole Sodium (Pantoprazole 40 Mg Vial) 40 mg IV QAMAC [facility] Last Admin: 08/04/22 07:16 Dose: 40 mg Polyethylene Glycol (Polyethylene Glycol 3350 17 Gm Packet) 17 gm PO DAILYP PRN PRN Reason: Constipation Last Admin: 08/04/22 06:03 Dose: 17 gm Potassium Chloride (Potassium Chloride 20 Meq Tablet) 40 meq PO UD PRN PRN Reason: Potssium is 3-3.5 Potassium Chloride (Potassium Chloride 20 Meq Tablet) 40 meq PO UD PRN PRN Reason: Potassium < 3 Promethazine HCl (Promethazine 25 Mg/Ml Vial) 12.5 mg IV Q6HP PRN PRN Reason: Nausea And Vomiting Senna (Sennosides 1 Tablet) 2 tab PO DAILYP PRN PRN Reason: Constipation Sodium Chloride (0.9 % Sodium Chloride 10 Ml Syringe) 10 ml IV Q8 [facility] Last Admin: 08/04/22 05:59 Dose: Not Given A/P Narrative A/P Narrative: 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 (08/01): *Abd pain: not improved *GERD: *h/o Migraines: On Topamax and propranolol *Metabolic acidosis: *Hyponatremia: improving *Transaminitis: improving P: -pending further recs per GI -Maintenance IVF -on clears, she doesn't think she could tolerate full liquid, advance as tolerated -pain control -Follow-up chemistry acid-base status -Antiemetics -check cbc/chem, sodium -ppx: Lovenox/home PPI Time Spent With Patient Time: Total time spent is greater than 50% in coordination of care (as documented) at patient's floor/unit and/or counseling patient: Total time spent with greater than 50% in coordination of care (as documented) at patient's floor/unit and/or counseling patient:: 35 - 50 minutes
[2022-08-04] MEDS: ENOXAPARIN 40 MG/0.4 ML SYRINGE SQ SCH (08:50)
--- NOTE | 2022-08-04 08:52 | ERCP Procedure Note ---
ERCP Procedure Note Procedure Information Patient information: Note initiated : 08/04/22 at 8:49 am Patient: Odette López 47 y/o F admitted on 08/02/22 for abdominal pain. Pre-op diagnosis general: Papillary stenosis. 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 Date of Procedure: 08/01/22 Procedure: ERCP with Stent Placement Procedure narrative: The procedures, alternatives and risks were discussed with the patient and the patient's questions were answered. She was advised of the risk of bleeding, pancreatitis, infection, perforation. With endoscopist-administered intravenous sedation, the Olympus side viewing operating duodenoscope was introduced into the esophagus and advanced to the second part of the duodenum without difficulty. The ampulla of Vater has undergone a previous papillotomy. The papillotomy seemed adequate. The bile duct was selectively cannulated taking care to avoid the pancreatic duct and cholan giogram obtained. The bile duct was markedly dilated. The common bile duct was swept; there were no stones. A 10F x 5 cm biliary stent was placed. At the end of the procedure, the bile duct appeared to be cleared of all stones. The scope was withdrawn. Assessment: Post cholecystectomy syndrome type 1.
--- NOTE | 2022-08-04 10:24 | Discharge Summary ---
Discharge Provider Provider IMPORTANT FOLLOW-UP INFORMATION FOR PCP: Patient information: Note initiated : 08/04/22 at 10:23 am Service Date, if different from initiated Date: [] Patient: Odette López a 47 y/o F admitted on 08/02/22 for abdominal pain. Chief Complaint: [] Date of admission: 08/02/22 15:33 Discharge date: 08/04/22 Primary care physician: KAMILAH Wiley Consults: 08/01/22 13:04 Consult to Physician [CONS] Stat Comment: Consulting Provider: Giovanni Casillas Reason For Exam: Physician to Consult 08/02/22 14:20 Consult to Physician [CONS] Routine Comment: Consulting Provider: Jaxon Bruce Reason For Exam: Physician to Consult COURSE Hospital Course Hospital course: History of present illness: Ms. López is a 47 year old F Complaining of abdominal pain. Patient developed COVID last week and has had abdominal pain in the upper abdomen since then. She presented to the ED yesterday with increasing pain for the past prior days. She has had nausea and vomiting. She has had a cholecystectomy. CT abdomen pelvis showed marked Neel dilated common bile duct that has been increasing since 2011. Findings were compatible with progressive post cholecystostomy papillary stenosis. Also noted was partial as directed me with moderately enlarged inhomogenous cervix recommend follow-up to rule out malignancy. Have patient follow-up outpatient. Dr. Boateng was contacted and the patient underwent ERCP which included a papillotomy and stent placement. Today she is developed increasing epigastric pain which is described as sharp radiating straight to the back. Her lipase went up to 700. Imaging shows stent in the proper position. 08/03 Patient states pain started acting up at 5 this morning. She has been nauseous but no vomiting. Lipase decreasing. Mild transaminitis. 08/04 Patient states less nausea today but still has abdominal pain. Symptoms more or less constant. Epigastrium/RUQ pain is sharp. Patient says she had this pain for almost a year, in the recent past. She went to [facility] but nothing was found. X-ray obtained and stent in correct position, no migration. Patient would like to go home and follow-up with GI. Will discharge have her follow-up with GI, advance diet slowly and as tolerated. [place] prescription printed. 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 (08/01): *Abd pain: *GERD: *h/o Migraines: On Topamax and propranolol *Metabolic acidosis: *Hyponatremia: improving *Transaminitis: improving P: -f/u with GI outpt Discharge diagnosis: Papillary stenosis status post ERCP stent and pancreatitis stent placement Secondary discharge diagnosis: Abdominal pain history of migraines metabolic acidosis hyponatremia transaminitis Time Spent with Patient Time attestation: Total time spent providing and/or coordinating discharge services: Time spent: Greater than 30 minutes EXAM Constitutional Vitals: Temp Pulse Resp BP Pulse Ox O2 Del Method O2 Flow Rate 98.5 F 71 12 112/70 98 96 08/04/22 07:24 08/04/22 07:24 08/04/22 07:24 08/04/22 07:24 08/04/22 07:24 08/04/22 07:24 08/02/22 11:53 Discharge Data Data Completed and Pending Labs on day of discharge: Labs from last 24 hours 08/04/22 05:37 Sodium 138 Potassium 3.5 Chloride 109 H Carbon Dioxide 20 L Anion Gap 9.0 BUN 2 L Creatinine 0.6 GFR Calculation 109 Glucose 93 Uric Acid 3.9 Calcium 7.9 L Phosphorus 2.7 Magnesium 1.8 Total Bilirubin 0.2 Direct Bilirubin < 0.2 GGT 77 H AST 32 H ALT 44 H Alkaline Phosphatase 69 Lactate Dehydrogenase 125 L Total Protein 5.7 L Albumin 3.3 Globulin 2.4 Albumin/Globulin Ratio 1.4 Triglycerides 156 H Lipase 129 H Discharge Plan Patient/Caregiver Discharge Instructions Activity: increase activity as tolerated Diet: Full Liquid Instructions: ERCP (Endoscopic Retrograde Cholangiopancreatography) (DC) Activity Restrictions/Additional Instructions: Advance diet as tolerated May resume activity as tolerated. May resume diet as tolerated. Call your providers office on Thursday for further follow up instructions. Return to ER for fever, chills, uncontrolled pain, inability to urinate or have a bowel movement, nausea and/or vomiting, swelling, redness, signs of infection, shortness of breath, chest pain, return of symptoms, or other acute symptoms. This discharge packet is provided to you to help keep you informed about your care. We want to ensure you get everything you need when you go home. You will also be receiving a call from us in a few days to follow up with you and see how you are doing since your discharge. This gives us a chance to listen to any concerns you maybe experiencing since you were discharged or any additional needs you may have, as well as providing us feedback on your care experience. We strive to always provide excellent care and thank you for your feedback and for choosing [facility]. Prescriptions: New hydrocodone-acetaminophen 5-325 mg tablet 1 tab PO Q6H PRN (Reason: pain) Qty: 30 0RF Continued propranolol 60 MG tablet 120 mg PO DAILY ondansetron [Zofran ODT] 8 MG tablet,disintegrating 8 mg PO Q8HP PRN (Reason: Nausea) Trokendi XR 200 MG capsule,extended release 24hr 500 mg PO DAILY duloxetine [Cymbalta] 30 MG capsule,delayed release(DR/EC) 60 mg PO DAILY zolmitriptan [Zomig] 5 MG tablet 5 mg PO PRN PRN (Reason: Headache) Vitamin B12 1,000 mg PO DAILY acetaminophen [Tylenol Extra Strength] 500 mg Tablet 500 - 1,000 mg PO DAILY PRN (Reason: Pain) omeprazole 20 mg Capsule,Delayed Release(Dr/Ec) 20 mg PO BID Follow Up Plan Follow up with: Rosamaria Santiago ARNP [Nurse Practitioner] - (Call office Thursday for follow up instructions, wants to see you next week.) Leena Salazar ARNP [Primary Care Provider] - (Follow-up as needed) Patient Disposition: Home, Self-Care Prognosis: Fair Discharge Orders: Discharge Order (Routine); Ordered 08/04/22 Ordered By: Jaxon Bruce
[2022-08-04] MEDS ORDERED: DEXTROSE 5%-1/2NS W/20MEQ KCL 1,000 ML IV SCH (11:00)
--- NOTE | 2022-08-04 12:35 | Internal Med Progress Note ---
SUBJECTIVE Subjective Patient information: Note initiated : 08/04/22 at 12:30 pm Service Date, if different from initiated Date: [] Patient: Odette López a 47 y/o F admitted on 08/02/22 for abdominal pain. Chief Complaint: [] Principal diagnosis: Post ERCP pancreatitis Interval history: Odette is a 47 year old female with a history of papillary stenosis who underwent ERCP 08/01 for CBD measuring 17mm and constant upper abdominal pain. ERCP showed an adequate papillotomy without recurrent stenosis. A 10fr 5 cm biliary stent was placed. The common bile duct was swept with a balloon but no stone identified. The pancreatic duct was avoided. The patient has significant post procedural upper abdominal pain and CT showed no complication. Pancreas appeared normal but Lipase was elevated at 777. She was kept for pain control and IVF. Her lipase has trended down to 129, but she continues have significant pain complaints. Nurses mention more pain behaviors when she is outside her room than when she is in her room. Constitutional Vitals: Vital Signs Temp Pulse Resp BP Pulse Ox O2 Del Method O2 Flow Rate 98.4 F 76 16 102/66 97 96 08/04/22 11:29 08/04/22 11:29 08/04/22 11:29 08/04/22 11:29 08/04/22 11:29 08/04/22 11:29 08/02/22 11:53 Period Temp Pulse Resp BP Sys/[place] Pulse Ox O2 Del Method O2 Flow Rate Last 24 Hr 98.4 F-98.7 F 70-76 12-20 97-112/66-72 97-99 Room Air-Room Air Intake and Output 08/04/22 08/04/22 08/04/22 03:59 11:59 19:59 Intake Total 1200 Output Total 800 1600 Balance -800 -400 Weight 172 lb Intake & Output: Intake & Output 08/04/22 08/04/22 08/04/22 03:59 11:59 19:59 Intake Total 1200 Output Total 800 1600 Balance -800 -400 Weight 172 lb Intake: IV 1000 Lactated Ringers 1,000 ml @ 100 1000 mls/hr IV .Q10H [place] Rx#: [id number] Oral 200 Output: Void Amount 800 1600 Other: Urine Appearance Clear Clear Urine Color Pale Yellow Urine Odor Normal Normal General appearance: average body habitus, cooperative and no acute distress Head Head exam: Present normal inspection and normocephalic Eye Eye exam: Present normal appearance Neck Neck exam: Present normal inspection Respiratory Respiratory exam: Absent accessory muscle use Neurological Exam Neurological exam: Present alert; Absent altered Psychiatric Psychiatric exam: Present normal affect and normal mood OBJ DATA Labs CBC & Chem 7: 08/03/22 05:30 08/04/22 05:37 Labs: Abnormal Lab Results 08/04/22 08/03/22 08/03/22 05:37 05:30 05:29 MPV 12.7 H Immature Gran % (Auto) Sodium Chloride 109 H Carbon Dioxide 20 L 19 L BUN 2 L Calcium 7.9 L 7.9 L GGT 77 H 86 H AST 32 H 95 H ALT 44 H 61 H Lactate Dehydrogenase 125 L Total Protein 5.7 L Triglycerides 156 H 167 H Amylase Lipase 129 H 08/03/22 08/02/22 08/02/22 05:29 06:19 06:19 MPV Immature Gran % (Auto) 0.6 H Sodium 132 L Chloride Carbon Dioxide 17 L BUN Calcium 8.4 L GGT 58 H AST ALT Lactate Dehydrogenase 130 L Total Protein Triglycerides Amylase Lipase 357 H 08/02/22 08/01/22 06:19 12:05 MPV Immature Gran % (Auto) Sodium Chloride Carbon Dioxide 17 L BUN Calcium 8.3 L GGT AST ALT Lactate Dehydrogenase Total Protein Triglycerides Amylase 26 L Lipase 777 H Meds: Medications Acetaminophen (Acetaminophen 325 Mg Tablet) 650 mg PO Q6HP PRN; Protocol PRN Reason: Per Pain Protocol/Fever > 101 Last Admin: 08/03/22 10:40 Dose: 650 mg Enoxaparin Sodium (Enoxaparin 40 Mg/0.4 Ml Syringe) 40 mg SQ DAILY [facility] Last Admin: 08/04/22 08:50 Dose: 40 mg Hydromorphone HCl (Hydromorphone 0.5 Mg/0.5 Ml Syringe) 0.5 - 1 mg IV Q2HP PRN; Protocol PRN Reason: Per Pain Protocol Last Admin: 08/04/22 11:37 Dose: 0.5 mg Potassium Chloride 40 meq/ (Dextrose) 520 mls @ 130 mls/hr IV UD PRN PRN Reason: Potassium < 3 Magnesium Sulfate (Magnesium Sulfate) 2 gm in 50 mls @ 50 mls/hr IV UD PRN PRN Reason: Magnesium </= 1.6 Potassium Chloride/Dextrose/Sod Cl (Dextrose 5%-1/2ns W/20meq Kcl) 1,000 mls @ 75 mls/hr IV .[id number] [facility] Last Admin: 08/04/22 11:39 Dose: 75 mls/hr Ondansetron HCl (Ondansetron 4 Mg/2 Ml Vial) 4 mg IV Q4HP PRN PRN Reason: Nausea And Vomiting Pantoprazole Sodium (Pantoprazole 40 Mg Vial) 40 mg IV QAMAC [facility] Last Admin: 08/04/22 07:16 Dose: 40 mg Polyethylene Glycol (Polyethylene Glycol 3350 17 Gm Packet) 17 gm PO DAILYP PRN PRN Reason: Constipation Last Admin: 08/04/22 06:03 Dose: 17 gm Potassium Chloride (Potassium Chloride 20 Meq Tablet) 40 meq PO UD PRN PRN Reason: Potssium is 3-3.5 Potassium Chloride (Potassium Chloride 20 Meq Tablet) 40 meq PO UD PRN PRN Reason: Potassium < 3 Promethazine HCl (Promethazine 25 Mg/Ml Vial) 12.5 mg IV Q6HP PRN PRN Reason: Nausea And Vomiting Senna (Sennosides 1 Tablet) 2 tab PO DAILYP PRN PRN Reason: Constipation Sodium Chloride (0.9 % Sodium Chloride 10 Ml Syringe) 10 ml IV Q8 [facility] Last Admin: 08/04/22 05:59 Dose: Not Given A/P Assessment and plan (1) Pancreatitis, acute: Assessment and plan: Discussed her case with Dr. Casillas. We will check an abdominal xray to check for biliary stent migration. It's unusual for someone with a patent papillotomy to develop post ercp pancreatitis, raising the possibility of a need for pancreatic sphincterotomy. If xray is normal we will discharge her on oral opioids, closely follow her in the clinic and arrange for repeat evaluation by Dr. Wilson at [facility]. If the stent has migrated, she may require more urgent transfer for endoscopic intervention. Her history of chronic pain may also be causing some hyperalgesia, complicating matters. Status: Acute Time Spent With Patient Time: Total time spent is greater than 50% in coordination of care (as documented) at patient's floor/unit and/or counseling patient: Total time spent with greater than 50% in coordination of care (as documented) at patient's floor/unit and/or counseling patient:: 25 - 35 minutes
--- NOTE | 2022-08-04 13:31 | XRay Report ---
CLINICAL INFORMATION: Biliary Stent migration? COMPARISON: None. FINDINGS: Biliary stent is in expected location overlying common bile duct in the right upper quadrant. The stool gas pattern is unremarkable. There is no free air, soft tissue mass, organomegaly or pathologic calcification. IMPRESSION: Normal abdomen Interpreted and Authenticated by: Haris Radford 08/04/22
--- NOTE | 2022-08-06 01:20 | XRay Report ---
CLINICAL INFORMATION: Papillary stenosis COMPARISON: Abdomen and pelvic CT 08/01/2022 FINDINGS: Digital images submitted following injection of the common bile duct shows marked dilatation of the common bile duct and moderate dilatation of the intrahepatic ducts. No filling dilatation to suggest stones Findings are compatible with papillary stenosis. A stent was successfully placed IMPRESSION: Recurrent papillary stenosis successfully treated with stent placement resulting in good duct drainage. Total fluoroscopy time: one minute 43 seconds Interpreted and Authenticated by: Haris Radford 08/06/22
== END 2022-08-04 14:25 | disposition home or self-care (01) | DRG 444 ==
LOC: ED 10:21 → SUR 16:20 → MEDSUR 17:15
PROVIDERS: ADMIT Internal Medicine; ATTEND Internal Medicine